=== PATIENT | male | born 1975 | race Caucasian/White ===

== ENCOUNTER 2023-08-22 17:21 | Emergency (ER) | payer MEDICAID ==
[~2023-08-22] VITALS: Ht 167.6 cm; Wt 59.1 kg
[~2023-08-22 17:21] MED LIST: CETI-90 PO
[2023-08-22] MEDS ORDERED: dexamethasone sod phosphate 10mg/ml inj IM STA (19:57)
[2023-08-22] MEDS ORDERED: ketorolac trometh inj. 60 MG/2 ML VIAL IM ONE (20:00)
[2023-08-22] MEDS ORDERED: diphenhydrAMINE 50 mg/ml inj IM ONE (20:00)
[2023-08-22] MEDS ORDERED: PRED20TA PO (20:03)
[2023-08-22] MEDS ORDERED: ketorolac trometh. 30mg/ml inj. IM ONE (20:10)
[2023-08-22 21:06] VITALS: BP 101/60; PULSE 83; RESP 16; TEMP 98.2; O2SAT 100
[2023-08-22] MEDS ORDERED: OXYC-145 PO (21:17)
== END 2023-08-22 21:20 | disposition home or self-care (01) ==
LOC: ER 17:21
DX: M79.89 Other specified soft tissue disorders (principal); Z88.5 Allergy status to narcotic agent; Z79.899 Other long term (current) drug therapy
CPT/HCPCS: 96372; 99284; J1100; J1200; J1885